=== PATIENT | female | born 1960 | race Caucasian/White ===

== ENCOUNTER 2020-04-20 11:22 | Outpatient (RCR) | payer OTHER, SELFPAY ==
[2020-04-20] MEDS: COVID-19 VACC, MRNA(PFIZER)/PF 30 MCG/0.3 ML SYRINGE IM (11:32)
[2020-05-11] MEDS: COVID-19 VACC, MRNA(PFIZER)/PF 30 MCG/0.3 ML SYRINGE IM (11:23)
== END 2020-07-20 23:59 ==
LOC: IMMUN 11:22
PROVIDERS: PCP Family Medicine; Visit Provider Family Medicine
DX: Z23 Encounter for immunization (principal)
CPT/HCPCS: 0001A; 0002A; 91300

== ENCOUNTER 2021-03-15 14:19 | Outpatient (CLI) | payer MEDICAID, SELFPAY ==
[2021-03-15 18:15] LABS: CRP 4.82 mg/L (0.0-3.0)
[2021-03-18 17:07] LABS: Endomysial Antibody IgA Positive (Negative)
[2021-03-18 19:09] LABS: Immunoglobulin A 190 mg/dL (87-352); t-Transglutaminase IgA 15 U/mL (0-3)
== END 2021-03-15 23:59 | disposition short-term general hospital (02) ==
LOC: MTLAB 14:21
PROVIDERS: PCP Family Medicine; Referring Provider Internal Medicine Gastroenterology; Visit Provider Internal Medicine Gastroenterology
DX: R19.7 Diarrhea, unspecified (principal)
CPT/HCPCS: 36415; 82784; 83516; 86140; 86255